=== PATIENT | female | born 1970 | race Hispanic/Latino ===

== ENCOUNTER 2017-05-22 16:34 | Emergency (ER) | payer SELFPAY ==
[~2017-05-22] VITALS: Ht 165.1 cm; Wt 65.8 kg
[2017-05-22] MEDS ORDERED: KETOROLAC TROMETHAMINE 60 MG/2 ML VIAL IM ONE (17:30)
[2017-05-22] MEDS ORDERED: KETOROLAC TROMETHAMINE 60 MG/2 ML VIAL ONE (20:47)
--- NOTE | 2017-05-22 21:10 | Diagnostic Imaging Report ---
KNEE LEFT THREE VIEWS HISTORY: Pain. Fall COMPARISON: None available. FINDINGS: Bones: Mildly comminuted nondisplaced fractures of the patella. Osseous alignment is within normal limits. Joints: The joint spaces are well-maintained. Soft tissues: Moderate suprapatellar joint effusion. IMPRESSION: Acute mildly comminuted nondisplaced fractures of the patella with moderate joint effusion. Signed by: DR. Gilbert Crespo MD on 05/22/2017 9:07 PM
== END 2017-05-22 21:03 | disposition home or self-care (01) ==
LOC: ER 16:34
DX: S82.045A Nondisplaced comminuted fracture of left patella, initial encounter for closed fracture (principal); W01.0XXA Fall on same level from slipping, tripping and stumbling without subsequent striking against object, initial encounter; Y93.01 Activity, walking, marching and hiking; Y92.410 Unspecified street and highway as the place of occurrence of the external cause; M25.462 Effusion, left knee
CPT/HCPCS: 73562; 99283; J1885

== ENCOUNTER 2020-02-12 14:33 | Observation (INO) | payer SELFPAY ==
[~2020-02-12] VITALS: Ht 165.1 cm; Wt 72.6 kg
[2020-02-12 15:05] LABS: BASOPHILS # (AUTO) 0.1 (0.0-0.1); BASOPHILS % 1.1 % (0.0-1.0); EOSINOPHILS % 0.2 % (0.0-6.0); HEMATOCRIT 38.4 % (34.2-44.1); HEMOGLOBIN 12.5 g/dL (12.0-16.0); LYMPHOCYTES # (AUTO) 1.5 (1.0-3.2); LYMPHOCYTES % 27.5 % (18.0-39.1); MEAN CORPUSCULAR HEMOGLOBIN 27.9 pg (28-32); MEAN CORPUSCULAR HGB CONC 32.6 g/dL (31-35); MEAN CORPUSCULAR VOLUME 85.7 fL (81-99); MONOCYTES # (AUTO) 0.4 (0.2-0.8); MONOCYTES % 7.7 % (4.4-11.3); NEUTROPHILS # (AUTO) 3.5 (2.1-6.9); NEUTROPHILS % 63.1 % (38.7-80.0); PLATELET COUNT 294 x10e3/uL (140-360); RED BLOOD COUNT 4.48 x10e6/uL (3.6-5.1); RED CELL DISTRIBUTION WIDTH 16.8 % (11.7-14.4)
[2020-02-12 15:08] LABS: CLARITY,URINE CLEAR (CLEAR); COLOR,URINE YELLOW (YELLOW); KETONES,URINE 1+ (NEGATIVE); LEUKOCYTE ESTERASE ,URINE NEGATIVE (NEGATIVE); NITRITE,URINE NEGATIVE (NEGATIVE); PROTEIN,URINE DIPSTICK 2+ (NEGATIVE)
[2020-02-12 15:09] LABS: BILIRUBIN,URINE MODERATE (NEGATIVE)
[2020-02-12 15:20] LABS: BACTERIA,URINE FEW /HPF; EPITHELIAL CELLS,URINE MODERATE /LPF; MUCUS,URINE FEW (RARE)
[2020-02-12 15:26] LABS: ALANINE AMINOTRANSFERASE 226 IU/L (0-55); ALBUMIN 4.5 g/dL (3.5-5.0); ALKALINE PHOSPHATASE 241 IU/L (40-150); ANION GAP 24.8 mmol/L (8-16); BLOOD UREA NITROGEN 5 mg/dL (7-26); BUN/CREATININE RATIO 6 (6-25); CALCIUM 9.6 mg/dL (8.4-10.2); CARBON DIOXIDE 23 mmol/L (22-29); CHLORIDE 96 mmol/L (98-107); CREATININE, SERUM 0.79 mg/dL (0.57-1.11); EST GLOMERULAR FILTRATION RATE > 60 ML/MIN (60-); GLUCOSE 101 mg/dL (74-118); LIPASE 28 U/L (8-78); SODIUM 141 mmol/L (136-145)
[2020-02-12 15:29] LABS: POTASSIUM 2.8 mmol/L (3.5-5.1)
[2020-02-12] MEDS ORDERED: LACTATED RINGER'S 1,000 ML INJ ONE (15:45)
[2020-02-12] MEDS ORDERED: POTASSIUM CHLORIDE 10MEQ/100ML 100 ML IV ONE (15:45)
[2020-02-12] MEDS: ONDANSETRON HCL INJ 2MG/ML 2ML 2 MG/ML VIAL IV PRN ×2 (15:55→22:36)
[2020-02-12] MEDS: D5NS/KCL 20MEQ 1,000 ML IV SCH (15:55)
[2020-02-12 16:13] LABS: MAGNESIUM 1.6 MG/DL (1.3-2.1); PHOSPHORUS 2.9 MG/DL (2.3-4.7)
[2020-02-12 16:24] LABS: ABG HCO3 27 mmol/L (22-26); ABG PCO2 33 mmHg (35-45); ABG PH 7.52 (7.35-7.45); ABG PO2 78 mmHg (80-105); ABG TCO2 28
[2020-02-12] MEDS ORDERED: PROMETHAZINE HCL (IM) 25 MG/ML VIAL IM ONE (16:26)
[2020-02-12] MEDS ORDERED: PROMETHAZINE 12.5MG/ NACL 0.9% 12.5 MG/50 ML BAG IV ONE (16:30)
[2020-02-12] MEDS ORDERED: CHLORDIAZEPOXIDE 100 MG AMP IV ONE (16:45)
[2020-02-12] MEDS ORDERED: ONDANSETRON HCL INJ 2MG/ML 2ML 2 MG/ML VIAL IV PRN (16:45)
[2020-02-12] MEDS ORDERED: CHLORDIAZEPOXIDE HCL 10 MG CAP PO ONE (17:00)
[2020-02-12 19:25] VITALS: BP 155/76
[2020-02-12 19:30] VITALS: BP 155/76
[2020-02-12 19:50] VITALS: BP 155/76
[2020-02-12] MEDS ORDERED: TRAZODONE HCL50 MG PO (23:23)
[2020-02-12] MEDS ORDERED: PROPRANOLOL HCL10 MG PO (23:23)
[2020-02-12] MEDS ORDERED: CYMBALTA30 MG (23:23)
[2020-02-12] MEDS ORDERED: RISPERIDONE2 MG (23:38)
[2020-02-12] MEDS ORDERED: CIPRO500 MG PO (23:38)
[2020-02-12] MEDS ORDERED: AMLODIPINE BESY10 MG PO (23:38)
[2020-02-12] MEDS ORDERED: DEXILANT30 MG (23:38)
[2020-02-12] MEDS ORDERED: LEVOTHYROXINE50 MCG PO (23:38)
[2020-02-12] MEDS ORDERED: DIPHENHYDRAMINE25 MG PO (23:38)
[2020-02-12] MEDS ORDERED: NAPROXEN250 MG PO (23:38)
[2020-02-12] MEDS ORDERED: ONDANSETRON HCL4 MG (23:38)
[2020-02-12] MEDS ORDERED: LIPITOR20 MG PO (23:38)
[2020-02-13] VITALS: BP 144/80
[2020-02-13] MEDS: D5NS/KCL 20MEQ 1,000 ML IV SCH ×2 (03:30→07:00)
[2020-02-13 04:00] VITALS: BP 144/75
[2020-02-13 06:00] LABS: BASOPHILS % 0.7 % (0.0-1.0); EOSINOPHILS % 0.7 % (0.0-6.0); HEMATOCRIT 34.4 % (34.2-44.1); LYMPHOCYTES # (AUTO) 1.5 (1.0-3.2); MEAN CORPUSCULAR HEMOGLOBIN 28.1 pg (28-32); MEAN CORPUSCULAR VOLUME 87.8 fL (81-99); MONOCYTES # (AUTO) 0.6 (0.2-0.8); MONOCYTES % 13.4 % (4.4-11.3); PLATELET COUNT 211 x10e3/uL (140-360); RED BLOOD COUNT 3.92 x10e6/uL (3.6-5.1); RED CELL DISTRIBUTION WIDTH 17.1 % (11.7-14.4)
[2020-02-13 06:23] LABS: BLOOD UREA NITROGEN 6 mg/dL (7-26); BUN/CREATININE RATIO 8 (6-25); CALCIUM 8.1 mg/dL (8.4-10.2); CARBON DIOXIDE 28 mmol/L (22-29); CHLORIDE 99 mmol/L (98-107); CREATININE, SERUM 0.71 mg/dL (0.57-1.11); EST GLOMERULAR FILTRATION RATE > 60 ML/MIN (60-); GLUCOSE 131 mg/dL (74-118); SODIUM 137 mmol/L (136-145)
[2020-02-13] MEDS ORDERED: MULTIVITAMINS- 12 INJECTION 10 ML, FOLIC ACID MDV 5 MG, THIAMINE HCL INJ 100 MG in SODI... IV ONE (06:45)
[2020-02-13] MEDS ORDERED: POTASSIUM CHLORIDE 20 MEQ TAB CR PO STA (07:45)
[2020-02-13] MEDS: ONDANSETRON HCL INJ 2MG/ML 2ML 2 MG/ML VIAL IV PRN (08:05)
[2020-02-13 08:24] VITALS: BP 151/88
[2020-02-13 08:37] VITALS: BP 151/88
[2020-02-13 12:08] VITALS: BP 148/78
[2020-02-13 15:47] VITALS: BP 150/89
[2020-02-13] MEDS ORDERED: ZOFRAN4 MG PO (17:12)
[2020-02-13] MEDS ORDERED: CHLORDIAZEPOXID25 MG PO (17:14)
== END 2020-02-13 17:33 | disposition home or self-care (01) ==
LOC: ER 14:50 → INTOOBSV 16:32 → ERHOLD 16:32 → MED/SURG2 19:31
PROVIDERS: ADMIT Family Medicine; ATTEND Family Medicine
DX: E87.6 Hypokalemia (principal); E86.0 Dehydration; F10.120 Alcohol abuse with intoxication, uncomplicated; I10 Essential (primary) hypertension; E03.9 Hypothyroidism, unspecified; E78.5 Hyperlipidemia, unspecified; F20.0 Paranoid schizophrenia; Z91.14 Patient's other noncompliance with medication regimen; Z87.440 Personal history of urinary (tract) infections; Z80.1 Family history of malignant neoplasm of trachea, bronchus and lung; Z83.3 Family history of diabetes mellitus; Z82.49 Family history of ischemic heart disease and other diseases of the circulatory system; Z20.828 Contact with and (suspected) exposure to other viral communicable diseases
CPT/HCPCS: 36415 ×2; 36600; 80048; 80053; 81001; 82805; 83690; 83735; 84100; 85025 ×2; 99285; G0378 ×2; J2405 ×2; J2550; J3411; J3480; J7030; J7121; U0002

== ENCOUNTER 2020-05-03 12:34 | Emergency (ER) | payer SELFPAY ==
[~2020-05-03] VITALS: Ht 165.1 cm; Wt 72.6 kg
[~2020-05-03 12:34] MED LIST: AMLODIPINE BESY10 MG PO; CHLORDIAZEPOXID25 MG PO; CIPRO500 MG PO; CYMBALTA30 MG; DEXILANT30 MG; DIPHENHYDRAMINE25 MG PO; LEVOTHYROXINE50 MCG PO; LIPITOR20 MG PO; NAPROXEN250 MG PO; ONDANSETRON HCL4 MG; PROPRANOLOL HCL10 MG PO; RISPERIDONE2 MG; TRAZODONE HCL50 MG PO; ZOFRAN4 MG PO
[2020-05-03] MEDS ORDERED: IBUPROFEN 600 MG TAB PO STA (13:11)
[2020-05-03] MEDS ORDERED: HYDROCODONE/APAP 10MG-325MG TAB PO ONE (13:15)
[2020-05-03] MEDS ORDERED: NAPROXEN250 MG PO (16:12)
[2020-05-03] MEDS ORDERED: HYDROCODON-ACE1 EA12 PO (16:12)
== END 2020-05-03 16:42 | disposition home or self-care (01) ==
LOC: ER 13:11
DX: S52.501A Unspecified fracture of the lower end of right radius, initial encounter for closed fracture (principal); X50.1XXA Overexertion from prolonged static or awkward postures, initial encounter; Y93.01 Activity, walking, marching and hiking
CPT/HCPCS: 99283

== ENCOUNTER 2021-03-29 22:35 | Emergency (ER) | payer MEDICARE ==
[~2021-03-29] VITALS: Ht 165.1 cm; Wt 81.6 kg
[~2021-03-29 22:35] MED LIST changes: +HYDROCODON-ACE1 EA12 PO
[2021-03-29 23:23] LABS: CLARITY,URINE CLOUDY (CLEAR); COLOR,URINE YELLOW (YELLOW); KETONES,URINE TRACE (NEGATIVE); LEUKOCYTE ESTERASE ,URINE LARGE (NEGATIVE); NITRITE,URINE NEGATIVE (NEGATIVE); PROTEIN,URINE DIPSTICK NEGATIVE (NEGATIVE); URINE UROBILINOGEN 0.2 mg/dL (0.2 - 1)
[2021-03-29 23:31] LABS: BACTERIA,URINE MODERATE /HPF; EPITHELIAL CELLS,URINE MANY /LPF; RBC,URINE 0-5 /HPF (0-5); WBC,URINE (MAN) >50 /HPF (0-5)
[2021-03-29 23:58] VITALS: BP 97/56
== END 2021-03-29 23:59 | disposition home or self-care (01) ==
LOC: ER 22:36
DX: R50.9 Fever, unspecified (principal); N39.0 Urinary tract infection, site not specified; R05.9 Cough, unspecified; M54.50 Low back pain, unspecified; I10 Essential (primary) hypertension; E78.5 Hyperlipidemia, unspecified; E03.9 Hypothyroidism, unspecified; F41.9 Anxiety disorder, unspecified; F20.0 Paranoid schizophrenia; Z20.822 Contact with and (suspected) exposure to COVID-19
CPT/HCPCS: 71045; 81001; 99283; U0002

== ENCOUNTER 2021-04-21 13:39 | Emergency (ER) | payer MEDICARE ==
[~2021-04-21] VITALS: Ht 165.1 cm; Wt 81.6 kg
[2021-04-21 14:39] LABS: BASOPHILS # (AUTO) 0.1 (0.0-0.1); BASOPHILS % 1.1 % (0.0-1.0); EOSINOPHILS # (AUTO) 0.1 (0.0-0.4); EOSINOPHILS % 1.4 % (0.0-6.0); HEMATOCRIT 36.3 % (34.2-44.1); HEMOGLOBIN 10.7 g/dL (12.0-16.0); LYMPHOCYTES # (AUTO) 3.2 (1.0-3.2); LYMPHOCYTES % 51.3 % (18.0-39.1); MEAN CORPUSCULAR HEMOGLOBIN 23.5 pg (28-32); MEAN CORPUSCULAR HGB CONC 29.5 g/dL (31-35); MEAN CORPUSCULAR VOLUME 79.8 fL (81-99); MONOCYTES # (AUTO) 0.7 (0.2-0.8); MONOCYTES % 10.6 % (4.4-11.3); NEUTROPHILS # (AUTO) 2.2 (2.1-6.9); NEUTROPHILS % 35.3 % (38.7-80.0); PLATELET COUNT 406 x10e3/uL (140-360); RED BLOOD COUNT 4.55 x10e6/uL (3.6-5.1); RED CELL DISTRIBUTION WIDTH 20.2 % (11.7-14.4)
[2021-04-21] MEDS ORDERED: LORAZEPAM INJ 2 MG/ML VIAL IV ONE (14:45)
[2021-04-21 14:54] LABS: ALBUMIN 4.5 g/dL (3.5-5.0); ANION GAP 18.7 mmol/L (8-16); CALCIUM 9.4 mg/dL (8.4-10.2); CREATININE, SERUM 1.14 mg/dL (0.57-1.11); POTASSIUM 3.7 mmol/L (3.5-5.1)
[2021-04-21 14:55] LABS: SALICYLATE < 5.0 mg/dL (0-30)
[2021-04-21 15:26] LABS: AMPHETAMINES SCREEN,URINE NEGATIVE (NEGATIVE); BENZODIAZEPINES SCREEN,URINE NEGATIVE (NEGATIVE); PHENCYCLIDINE SCREEN,URINE NEGATIVE (NEGATIVE)
[2021-04-21 15:27] LABS: CLARITY,URINE SL CLOUDY (CLEAR); COLOR,URINE YELLOW (YELLOW); KETONES,URINE TRACE (NEGATIVE); LEUKOCYTE ESTERASE ,URINE 1+ (NEGATIVE); NITRITE,URINE NEGATIVE (NEGATIVE); PROTEIN,URINE DIPSTICK TRACE (NEGATIVE); URINE UROBILINOGEN 0.2 mg/dL (0.2 - 1)
[2021-04-21 15:41] LABS: BACTERIA,URINE MANY /HPF; EPITHELIAL CELLS,URINE MANY /LPF; RENAL EPITHELIAL CELLS,URINE FEW
[2021-04-21 15:44] LABS: TRICHOMONAS,URINE MANY
[2021-04-21] MEDS ORDERED: SODIUM CHLORIDE 0.9% 1000ML 1,000 ML IV STA (16:04)
[2021-04-21] MEDS ORDERED: CEPHALEXIN 500 MG CAP PO SCH (16:15)
[2021-04-22 00:33] VITALS: BP 214/110
== END 2021-04-22 00:47 | disposition home or self-care (01) ==
LOC: ER 14:03
DX: R45.851 Suicidal ideations (principal); F10.129 Alcohol abuse with intoxication, unspecified; N39.0 Urinary tract infection, site not specified; I10 Essential (primary) hypertension; E03.9 Hypothyroidism, unspecified; E78.5 Hyperlipidemia, unspecified; F20.0 Paranoid schizophrenia; F41.9 Anxiety disorder, unspecified; R01.1 Cardiac murmur, unspecified; Z20.822 Contact with and (suspected) exposure to COVID-19
CPT/HCPCS: 36415; 80053; 80307; 80320; 80329 ×2; 81001; 84702; 85025; 99284; J2060; J7030; U0002

== ENCOUNTER 2021-11-02 13:45 | Observation (INO) | payer MEDICARE ==
[~2021-11-02] VITALS: Ht 165.1 cm; Wt 73.0 kg
[~2021-11-02 13:45] MED LIST changes: +SODIUM CHLORIDE FLUSH 10 ML SYR IV PRN
[2021-11-02] MEDS ORDERED: ONDANSETRON HCL INJ 2MG/ML 2ML 2 MG/ML VIAL IV STA (14:27)
[2021-11-02 14:35] LABS: BASOPHILS % 1.1 % (0.0-1.0); EOSINOPHILS % 1.1 % (0.0-6.0); HEMOGLOBIN 10.3 g/dL (12.0-16.0); LYMPHOCYTES % 54.9 % (18.0-39.1); MEAN CORPUSCULAR HEMOGLOBIN 32.1 pg (28-32); MEAN CORPUSCULAR HGB CONC 33.2 g/dL (31-35); MEAN CORPUSCULAR VOLUME 96.6 fL (81-99); MONOCYTES # (AUTO) 0.3 (0.2-0.8); MONOCYTES % 6.9 % (4.4-11.3); NEUTROPHILS # (AUTO) 1.3 (2.1-6.9); NEUTROPHILS % 35.7 % (38.7-80.0); PLATELET COUNT 275 x10e3/uL (140-360); RED BLOOD COUNT 3.21 x10e6/uL (3.6-5.1); RED CELL DISTRIBUTION WIDTH 12.2 % (11.7-14.4)
[2021-11-02 14:40] LABS: INR 0.94; PARTIAL THROMBOPLASTIN TIME 30.3 seconds (23.8-35.5); PROTHROMBIN TIME 13.4 seconds (11.9-14.5)
[2021-11-02 14:46] LABS: LIPASE 22 U/L (8-78)
[2021-11-02 14:48] LABS: ALBUMIN 3.5 g/dL (3.5-5.0); ALBUMIN/GLOBULIN RATIO 0.9 (0.8-2.0); ANION GAP 16.9 mmol/L (8-16); CREATININE, SERUM 1.05 mg/dL (0.57-1.11); POTASSIUM 3.9 mmol/L (3.5-5.1)
[2021-11-02 14:57] LABS: CLARITY,URINE CLEAR (CLEAR); COLOR,URINE YELLOW (YELLOW); KETONES,URINE NEGATIVE (NEGATIVE); LEUKOCYTE ESTERASE ,URINE NEGATIVE (NEGATIVE); NITRITE,URINE NEGATIVE (NEGATIVE); PROTEIN,URINE DIPSTICK NEGATIVE (NEGATIVE); URINE UROBILINOGEN 0.2 mg/dL (0.2 - 1)
[2021-11-02 15:06] LABS: BACTERIA,URINE MODERATE /HPF; EPITHELIAL CELLS,URINE FEW /LPF
[2021-11-02] MEDS: OCTREOTIDE ACETATE 0.05 MG/ML AMP IV SCH ×2 (15:30→20:48)
[2021-11-02] MEDS: SODIUM CHLORIDE 0.9% 1000ML 1,000 ML IV SCH ×2 (15:30→20:48)
[2021-11-02] MEDS: OCTREOTIDE ACETATE 500 MCG in SODIUM CHLORIDE 0.9% 250ML 250 ML IV SCH (16:00)
[2021-11-02] MEDS ORDERED: ONDANSETRON HCL INJ 2MG/ML 2ML 2 MG/ML VIAL IV PRN (17:45)
[2021-11-02 20:00] VITALS: BP 180/110
[2021-11-02 21:00] VITALS: BP_SYST 161; BP_SYST 180; BP_DIAS 110; BP_DIAS 90
[2021-11-03] VITALS (8 sets, daily range): BP systolic 131–200; BP diastolic 85–120
[2021-11-03 00:39] LABS: % IRON SATURATION 75 % (15-50); IRON 183 ug/dL (50-170); TOTAL IRON BINDING CAPACITY 245 ug/dL (261-478); TRANSFERRIN 175 mg/dL (180-382)
[2021-11-03] MEDS: OCTREOTIDE ACETATE 500 MCG in SODIUM CHLORIDE 0.9% 250ML 250 ML IV SCH ×3 (04:00→21:13)
[2021-11-03 05:23] LABS: EOSINOPHILS % 0.7 % (0.0-6.0); HEMATOCRIT 30.8 % (34.2-44.1); HEMOGLOBIN 10.4 g/dL (12.0-16.0); LYMPHOCYTES # (AUTO) 0.9 (1.0-3.2); LYMPHOCYTES % 21.4 % (18.0-39.1); MEAN CORPUSCULAR HGB CONC 33.8 g/dL (31-35); MEAN CORPUSCULAR VOLUME 94.8 fL (81-99); MONOCYTES # (AUTO) 0.3 (0.2-0.8); MONOCYTES % 8.4 % (4.4-11.3); NEUTROPHILS # (AUTO) 2.8 (2.1-6.9); NEUTROPHILS % 68.3 % (38.7-80.0); PLATELET COUNT 250 x10e3/uL (140-360); RED BLOOD COUNT 3.25 x10e6/uL (3.6-5.1)
[2021-11-03 05:52] LABS: ALBUMIN 3.5 g/dL (3.5-5.0); ANION GAP 22.5 mmol/L (8-16); CALCIUM 7.6 mg/dL (8.4-10.2); CREATININE, SERUM 0.98 mg/dL (0.57-1.11); POTASSIUM 3.5 mmol/L (3.5-5.1)
[2021-11-03] MEDS ORDERED: NAPROXEN 250 MG TAB PO PRN (06:00)
[2021-11-03] MEDS ORDERED: HYDROCODONE/APAP 7.5MG-325MG 1 EA TAB PO PRN (06:00)
[2021-11-03] MEDS: ONDANSETRON HCL 4 MG ORAL DISINTEGRATING TAB PO SCH ×3 (06:09→16:43)
[2021-11-03] MEDS: CHLORDIAZEPOXIDE HCL 25 MG CAP PO SCH ×3 (06:09→16:43)
[2021-11-03] MEDS: PROPRANOLOL HCL 10 MG TAB PO SCH ×2 (06:10→16:43)
[2021-11-03] MEDS ORDERED: AMLODIPINE BESYLATE 10 MG TAB PO SCH ×2 (07:00→09:00)
[2021-11-03] MEDS: DULOXETINE HCL 30 MG DELAYED RELEASE PO SCH (08:41)
[2021-11-03] MEDS: HYDRALAZINE HCL 20 MG/ML VIAL IV PRN ×2 (09:02→16:00)
[2021-11-03 11:56] LABS: WBC,FECAL (FECAL LACTOFERRIN) POSITIVE (NEGATIVE)
[2021-11-03] MEDS ORDERED: FENTANYL CITRATE/PF 100MCG/2 ML INJ ONE (13:44)
[2021-11-03] MEDS ORDERED: MIDAZOLAM HCL 2 MG/2 ML VIAL ONE (13:44)
[2021-11-03] MEDS: AMLODIPINE BESYLATE 10 MG TAB PO SCH (16:43)
[2021-11-03] MEDS ORDERED: METOCLOPRAMIDE HCL 10 MG/2ML VIAL ONE (19:40)
[2021-11-03] MEDS ORDERED: TRAZODONE HCL 50 MG TAB PO SCH (21:00)
[2021-11-03] MEDS ORDERED: ATORVASTATIN 40 MG TAB PO SCH (21:00)
[2021-11-03] MEDS ORDERED: SODIUM CHLORIDE 0.9% 250ML 500 ML ONE (21:01)
[2021-11-04] VITALS: BP 143/78
[2021-11-04] MEDS: ONDANSETRON HCL 4 MG ORAL DISINTEGRATING TAB PO SCH ×3 (01:19→11:16)
[2021-11-04] MEDS: CHLORDIAZEPOXIDE HCL 25 MG CAP PO SCH ×3 (01:19→11:16)
[2021-11-04 04:00] VITALS: BP 159/92
[2021-11-04] MEDS: OCTREOTIDE ACETATE 500 MCG in SODIUM CHLORIDE 0.9% 250ML 250 ML IV SCH (07:24)
[2021-11-04 08:10] VITALS: BP 138/88
[2021-11-04] MEDS: AMLODIPINE BESYLATE 10 MG TAB PO SCH (08:50)
[2021-11-04] MEDS: DULOXETINE HCL 30 MG DELAYED RELEASE PO SCH (08:50)
[2021-11-04] MEDS: PROPRANOLOL HCL 10 MG TAB PO SCH (08:51)
[2021-11-04 09:05] VITALS: BP 138/88
[2021-11-04] MEDS ORDERED: PROPOFOL IV EMULSION 10 MG/ML 20 ML VIAL IV ONE (11:59)
== END 2021-11-04 12:00 | disposition home or self-care (01) ==
LOC: ER 14:19 → ERHOLD 17:44 → MED/SURG 20:33 → MED/SURG2 11-04 05:29
PROVIDERS: ADMIT Internal Medicine; ATTEND Internal Medicine
DX: K29.21 Alcoholic gastritis with bleeding (principal); F10.220 Alcohol dependence with intoxication, uncomplicated; K70.30 Alcoholic cirrhosis of liver without ascites; Y90.8 Blood alcohol level of 240 mg/100 ml or more; F41.9 Anxiety disorder, unspecified; I10 Essential (primary) hypertension; K70.0 Alcoholic fatty liver; K21.9 Gastro-esophageal reflux disease without esophagitis; M19.90 Unspecified osteoarthritis, unspecified site; K44.9 Diaphragmatic hernia without obstruction or gangrene; K20.90 Esophagitis, unspecified without bleeding; Z87.11 Personal history of peptic ulcer disease; E03.9 Hypothyroidism, unspecified; E78.5 Hyperlipidemia, unspecified; K52.9 Noninfective gastroenteritis and colitis, unspecified; F20.0 Paranoid schizophrenia; Z90.710 Acquired absence of both cervix and uterus; Z20.822 Contact with and (suspected) exposure to COVID-19
CPT/HCPCS: 36415 ×2; 43239; 71045; 74176; 80053 ×2; 80320; 81001; 82607; 82746; 82948; 83540; 83630; 83690; 84466; 84484; 85025 ×2; 85045; 85610; 85730; 86850; 86900; 87045; 87086; 87177; 87324; 87449; 88305; 88342; 93005; 96360; 96361 ×2; 99284; C9113 ×3; G0378 ×3; J0360; J2250; J2353 ×3; J2354; J2405; J2704; J2765; J3010; J7030; J7050 ×3; Q0162 ×2; U0002; 88304; 88312

== ENCOUNTER 2022-01-14 21:05 | Emergency (ER) | payer MEDICARE ==
[~2022-01-14] VITALS: Ht 165.1 cm; Wt 73.0 kg
[~2022-01-14 21:05] MED LIST changes: -SODIUM CHLORIDE FLUSH 10 ML SYR IV PRN
[2022-01-14] MEDS ORDERED: ONDANSETRON HCL INJ 2MG/ML 2ML 2 MG/ML VIAL IV STA (21:26)
[2022-01-14] MEDS ORDERED: Morphine 4mg INJECTION 4 MG/ML INJ IV ONE ×2 (21:30→23:45)
[2022-01-14] MEDS ORDERED: SODIUM CHLORIDE 0.9% 1000ML 1,000 ML IV ONE (21:30)
[2022-01-14 21:49] LABS: BASOPHILS % 0.4 % (0.0-1.0); HEMATOCRIT 32.4 % (34.2-44.1); HEMOGLOBIN 11.1 g/dL (12.0-16.0); LYMPHOCYTES # (AUTO) 0.4 (1.0-3.2); LYMPHOCYTES % 4.8 % (18.0-39.1); MEAN CORPUSCULAR HGB CONC 34.3 g/dL (31-35); MEAN CORPUSCULAR VOLUME 90.5 fL (81-99); MONOCYTES # (AUTO) 0.5 (0.2-0.8); NEUTROPHILS # (AUTO) 6.6 (2.1-6.9); NEUTROPHILS % 87.5 % (38.7-80.0); PLATELET COUNT 248 x10e3/uL (140-360); RED BLOOD COUNT 3.58 x10e6/uL (3.6-5.1); RED CELL DISTRIBUTION WIDTH 13.2 % (11.7-14.4)
[2022-01-14 22:13] LABS: ALBUMIN 3.8 g/dL (3.5-5.0); ALBUMIN/GLOBULIN RATIO 1.2 (0.8-2.0); ANION GAP 22.7 mmol/L (8-16); CREATININE, SERUM 0.79 mg/dL (0.57-1.11)
[2022-01-14 22:14] LABS: POTASSIUM 2.7 mmol/L (3.5-5.1)
[2022-01-14 22:22] LABS: CREATINE KINASE MB 0.6 ng/mL (0-5.0)
[2022-01-14 22:27] LABS: ABG HCO3 27 mmol/L (22-26); ABG PCO2 38 mmHg (35-45); ABG PH 7.45 (7.35-7.45); ABG PO2 79 mmHg (80-105); ABG TCO2 28
[2022-01-14] MEDS ORDERED: PROMETHAZINE 25MG/ NS 50ML (IV) IV ONE (23:00)
[2022-01-14] MEDS: POTASSIUM CHLORIDE 20MEQ/100ML 100 ML IV SCH (23:01)
[2022-01-14] MEDS ORDERED: PROMETHAZINE 25MG/SOD CHL 0.9% 50 ML IV ONE (23:07)
[2022-01-14] MEDS ORDERED: Morphine 4mg INJECTION 4 MG/ML INJ ONE (23:07)
[2022-01-14] MEDS ORDERED: SODIUM CHLORIDE 0.9% 1000ML 1,000 ML ONE (23:07)
[2022-01-14] MEDS ORDERED: SODIUM CHLORIDE 0.9% 500ML 500 ML ONE (23:16)
[2022-01-14] MEDS ORDERED: ACETAMINOPHEN 325 MG TAB PO STA (23:36)
[2022-01-14] MEDS ORDERED: ACETAMINOPHEN 325 MG TAB ONE (23:52)
[2022-01-15] MEDS: POTASSIUM CHLORIDE 20MEQ/100ML 100 ML IV SCH (01:00)
[2022-01-15 02:01] LABS: AMPHETAMINES SCREEN,URINE NEGATIVE (NEGATIVE); BENZODIAZEPINES SCREEN,URINE NEGATIVE (NEGATIVE); PHENCYCLIDINE SCREEN,URINE NEGATIVE (NEGATIVE)
[2022-01-15 02:02] LABS: CLARITY,URINE CLEAR (CLEAR); COLOR,URINE YELLOW (YELLOW); KETONES,URINE 2+ (NEGATIVE); LEUKOCYTE ESTERASE ,URINE NEGATIVE (NEGATIVE); NITRITE,URINE NEGATIVE (NEGATIVE); PROTEIN,URINE DIPSTICK 1+ (NEGATIVE); URINE UROBILINOGEN 0.2 mg/dL (0.2 - 1)
[2022-01-15 02:16] LABS: BACTERIA,URINE MANY /HPF; EPITHELIAL CELLS,URINE FEW /LPF
[2022-01-15 02:17] LABS: MUCUS,URINE MODERATE (RARE); TRANSITIONAL EPI CELLS,URINE FEW
[2022-01-15 02:24] VITALS: BP 159/106
[2022-01-15] MEDS ORDERED: ONDANSETRON HCL INJ 2MG/ML 2ML 2 MG/ML VIAL ONE ×2 (02:32→03:08)
[2022-01-15] MEDS ORDERED: ONDANSETRON ODT4 MG PO (02:55)
[2022-01-15] MEDS ORDERED: CIPRO500 MG PO (02:55)
[2022-01-15] MEDS ORDERED: ONDANSETRON HCL INJ 2MG/ML 2ML 2 MG/ML VIAL IV STA (03:04)
== END 2022-01-15 03:18 | disposition home or self-care (01) ==
LOC: ER 21:14
DX: R10.13 Epigastric pain (principal); N39.0 Urinary tract infection, site not specified; R11.2 Nausea with vomiting, unspecified; E11.65 Type 2 diabetes mellitus with hyperglycemia; E87.6 Hypokalemia; I10 Essential (primary) hypertension; R00.0 Tachycardia, unspecified; E78.5 Hyperlipidemia, unspecified; E03.9 Hypothyroidism, unspecified; F41.9 Anxiety disorder, unspecified; F32.A Depression, unspecified; F20.0 Paranoid schizophrenia; R94.31 Abnormal electrocardiogram [ECG] [EKG]
CPT/HCPCS: 36415; 36600; 76705; 80053; 80307; 81001; 82550; 82553; 82805; 83690; 84484; 85025; 93005; 99284; J2270; J2405 ×2; J2550; J3480; J7030; J7040

== ENCOUNTER 2022-07-04 12:04 | Emergency (ER) | payer MEDICARE ==
[~2022-07-04] VITALS: Ht 165.1 cm; Wt 73.0 kg
[~2022-07-04 12:04] MED LIST changes: +ONDANSETRON ODT4 MG PO
[2022-07-04] MEDS ORDERED: HYDROCODONE/APAP 7.5MG-325MG 1 EA TAB PO STA (12:30)
[2022-07-04] MEDS ORDERED: KETOROLAC TROMETHAMINE 30 MG/ML VIAL IM STA (12:30)
[2022-07-04] MEDS ORDERED: LIDOCAINE1 EACH EXT (13:48)
[2022-07-04] MEDS ORDERED: NAPROXEN250 MG PO (13:48)
[2022-07-04 14:36] VITALS: BP 135/78
== END 2022-07-04 14:35 | disposition home or self-care (01) ==
LOC: ER 12:11
DX: R07.81 Pleurodynia (principal); Y04.0XXA Assault by unarmed brawl or fight, initial encounter; Y92.89 Other specified places as the place of occurrence of the external cause; I10 Essential (primary) hypertension; E11.9 Type 2 diabetes mellitus without complications; E78.5 Hyperlipidemia, unspecified; F20.0 Paranoid schizophrenia; F32.A Depression, unspecified; F41.9 Anxiety disorder, unspecified
CPT/HCPCS: 71101; 73562; 99283; J1885

== ENCOUNTER 2022-08-02 15:58 | Observation (INO) | payer MEDICARE ==
[~2022-08-02] VITALS: Ht 165.1 cm; Wt 63.5 kg
[~2022-08-02 15:58] MED LIST changes: -CYMBALTA30 MG; +CYMBALTA30 MG PO; -DEXILANT30 MG; +DEXILANT30 MG PO; +LIDOCAINE1 EACH EXT
[2022-08-02] MEDS ORDERED: OCTREOTIDE ACETATE 0.05 MG/ML AMP IV STA (16:23)
[2022-08-02] MEDS ORDERED: GABAPENTIN600 MG PO (16:27)
[2022-08-02] MEDS ORDERED: ATORVASTATIN CA40 MG PO (16:27)
[2022-08-02] MEDS ORDERED: BUSPIRONE HCL15 MG PO (16:27)
[2022-08-02 16:28] LABS: EOSINOPHILS # (AUTO) 0.1 (0.0-0.4); HEMATOCRIT 33.9 % (34.2-44.1); HEMOGLOBIN 10.8 g/dL (12.0-16.0); LYMPHOCYTES # (AUTO) 1.7 (1.0-3.2); LYMPHOCYTES % 42.6 % (18.0-39.1); MEAN CORPUSCULAR HEMOGLOBIN 28.8 pg (28-32); MEAN CORPUSCULAR HGB CONC 31.9 g/dL (31-35); MEAN CORPUSCULAR VOLUME 90.4 fL (81-99); MONOCYTES # (AUTO) 0.2 (0.2-0.8); MONOCYTES % 5.5 % (4.4-11.3); NEUTROPHILS % 48.9 % (38.7-80.0); PLATELET COUNT 332 x10e3/uL (140-360); RED BLOOD COUNT 3.75 x10e6/uL (3.6-5.1); RED CELL DISTRIBUTION WIDTH 12.5 % (11.7-14.4)
[2022-08-02] MEDS ORDERED: MULTIVITAMINS- 12 INJECTION 10 ML, FOLIC ACID MDV 1 MG, THIAMINE HCL INJ 100 MG in SODI... IV ONE (16:30)
[2022-08-02 16:47] LABS: INR 0.9; PROTHROMBIN TIME 12.6 seconds (11.9-14.5)
[2022-08-02] MEDS: OCTREOTIDE ACETATE 500 MCG in SODIUM CHLORIDE 0.9% 250ML 249 ML IV SCH (16:50)
[2022-08-02 16:56] LABS: ALBUMIN 4.3 g/dL (3.5-5.0); ALBUMIN/GLOBULIN RATIO 1.1 (0.8-2.0); ANION GAP 14.4 mmol/L (8-16); CALCIUM 9.3 mg/dL (8.4-10.2); CREATININE, SERUM 0.84 mg/dL (0.57-1.11); POTASSIUM 3.4 mmol/L (3.5-5.1)
[2022-08-02] MEDS ORDERED: SODIUM CHLORIDE 0.9% 100 ML ONE (17:02)
[2022-08-02] MEDS ORDERED: IOPAMIDOL 370 MG/ML 100 ML INFUS..BTL INJ ONE (17:02)
[2022-08-02] MEDS ORDERED: SODIUM CHLORIDE FLUSH 10 ML SYR INJ PRN (17:30)
[2022-08-02] MEDS ORDERED: CHLORDIAZEPOXIDE HCL 25 MG CAP PO PRN (17:30)
[2022-08-02] MEDS ORDERED: ONDANSETRON HCL INJ 2MG/ML 2ML 2 MG/ML VIAL IV PRN (17:30)
[2022-08-02] MEDS ORDERED: ACETAMINOPHEN 325 MG TAB PO PRN (20:15)
[2022-08-02] MEDS ORDERED: MELOXICAM7.5 MG PO (22:49)
[2022-08-02] MEDS ORDERED: MELOXICAM 7.5 MG TAB PO PRN (23:00)
[2022-08-02] MEDS ORDERED: AMLODIPINE BESYLATE 5 MG TAB PO ONE (23:15)
[2022-08-02] MEDS ORDERED: POTASSIUM CHLORIDE 20 MEQ TAB CR PO PRN (23:45)
[2022-08-03] MEDS: OCTREOTIDE ACETATE 500 MCG in SODIUM CHLORIDE 0.9% 250ML 249 ML IV SCH (04:17)
[2022-08-03 05:50] LABS: BASOPHILS # (AUTO) 0.1 (0.0-0.1); BASOPHILS % 1.4 % (0.0-1.0); EOSINOPHILS # (AUTO) 0.1 (0.0-0.4); EOSINOPHILS % 2.2 % (0.0-6.0); HEMATOCRIT 33.6 % (34.2-44.1); HEMOGLOBIN 10.7 g/dL (12.0-16.0); LYMPHOCYTES # (AUTO) 1.4 (1.0-3.2); LYMPHOCYTES % 28.7 % (18.0-39.1); MEAN CORPUSCULAR HEMOGLOBIN 28.8 pg (28-32); MEAN CORPUSCULAR HGB CONC 31.8 g/dL (31-35); MEAN CORPUSCULAR VOLUME 90.3 fL (81-99); MONOCYTES # (AUTO) 0.5 (0.2-0.8); MONOCYTES % 10.8 % (4.4-11.3); NEUTROPHILS # (AUTO) 2.8 (2.1-6.9); NEUTROPHILS % 56.9 % (38.7-80.0); PLATELET COUNT 311 x10e3/uL (140-360); RED BLOOD COUNT 3.72 x10e6/uL (3.6-5.1); RED CELL DISTRIBUTION WIDTH 11.9 % (11.7-14.4)
[2022-08-03 06:07] LABS: ANION GAP 14.1 mmol/L (8-16); CREATININE, SERUM 0.99 mg/dL (0.57-1.11); POTASSIUM 4.1 mmol/L (3.5-5.1)
[2022-08-03 06:17] LABS: MAGNESIUM 1.6 MG/DL (1.3-2.1)
[2022-08-03 06:25] LABS: THYROID STIMULATING HORMONE 0.702 uIU/mL (0.350-4.940)
[2022-08-03] MEDS ORDERED: PANTOPRAZOLE SOD 40 MG TABEC PO SCH (07:30)
[2022-08-03] MEDS ORDERED: DULOXETINE HCL 30 MG DELAYED RELEASE PO SCH (09:00)
[2022-08-03] MEDS ORDERED: BUSPIRONE HCL 10 MG TABLET PO SCH (09:00)
[2022-08-03] MEDS ORDERED: PROPRANOLOL HCL 10 MG TAB PO SCH (09:00)
[2022-08-03] MEDS ORDERED: GABAPENTIN 300 MG CAP PO SCH (09:00)
[2022-08-03] MEDS ORDERED: AMLODIPINE BESYLATE 10 MG TAB PO SCH (09:00)
[2022-08-03] MEDS ORDERED: ATORVASTATIN 40 MG TAB PO SCH (21:00)
[2022-08-03] MEDS ORDERED: TRAZODONE HCL 50 MG TAB PO SCH (21:00)
== END 2022-08-03 11:00 | disposition home or self-care (01) ==
LOC: ER 16:03 → ERHOLD 17:26
PROVIDERS: ADMIT Internal Medicine; ATTEND Internal Medicine
DX: K29.21 Alcoholic gastritis with bleeding (principal); K44.9 Diaphragmatic hernia without obstruction or gangrene; F10.20 Alcohol dependence, uncomplicated; K70.30 Alcoholic cirrhosis of liver without ascites; D62 Acute posthemorrhagic anemia; Z20.822 Contact with and (suspected) exposure to COVID-19
CPT/HCPCS: 0223U; 36415 ×2; 74174; 80048; 80053; 80320; 82607; 83540; 83735; 84100; 84443; 84466; 85025 ×2; 85610; 99285; C9113; G0378 ×2; J2353 ×2; J2354; J3411; J7030; J7050 ×3; Q9967; 99284

== ENCOUNTER → 2024-04-10 | Day surgery (SDC) | payer MEDICARE ==
[2024-03-30 11:32] LABS: BASOPHILS % 0.3 % (0.0-1.0); EOSINOPHILS % 0.3 % (0.0-6.0); HEMATOCRIT 28.9 % (34.2-44.1); HEMOGLOBIN 7.8 g/dL (12.0-16.0); LYMPHOCYTES # (AUTO) 1.1 (1.0-3.2); MEAN CORPUSCULAR VOLUME 81.6 fL (81-99); MONOCYTES # (AUTO) 0.9 (0.2-0.8); MONOCYTES % 7.4 % (4.4-11.3); NEUTROPHILS # (AUTO) 10.2 (2.1-6.9); NEUTROPHILS % 82.8 % (38.7-80.0); PLATELET COUNT 357 x10e3/uL (140-360); RED BLOOD COUNT 3.54 x10e6/uL (3.6-5.1); RED CELL DISTRIBUTION WIDTH 18.3 % (11.7-14.4); WHITE BLOOD COUNT 12.28 x10e3/uL (4.8-10.8)
[2024-03-30 11:56] LABS: INR 0.9; PROTHROMBIN TIME 12.7 seconds (11.9-14.5)
[2024-03-30 11:57] LABS: PARTIAL THROMBOPLASTIN TIME 28.4 seconds (23.8-35.5)
[2024-03-30 12:01] LABS: ANION GAP 16.4 mmol/L (8-16); CALCIUM 9.6 mg/dL (8.4-10.2); CREATININE, SERUM 1.02 mg/dL (0.57-1.11); POTASSIUM 3.4 mmol/L (3.5-5.1)
[~2024-04-10] MED LIST changes: +ATORVASTATIN CA40 MG PO; +BUSPIRONE HCL15 MG PO; +GABAPENTIN600 MG PO; +HYDROCODON-ACE1 EAC9 PO; +KETOROLAC TROME10 MG PO; +LIDOCAINE HCL 2% LOCAL INJ 5 ML SDV VIAL INJ ONE; +MELOXICAM7.5 MG PO; +MIDAZOLAM HCL 2 MG/2 ML VIAL ONE; +PROPOFOL IV EMULSION 50 ML IV ONE; +ROSUVASTATIN CA40 MG PO; +SUCRALFATE1 GM PO; +VENTOLIN HFA18 GM INH; +VITAMIN D250 MC1 PO
[2024-04-10] MEDS: LACTATED RINGER'S 1,000 ML ONE (09:06)
[2024-04-10 10:06] LABS: BASOPHILS # (AUTO) 0.1 (0.0-0.1); BASOPHILS % 1.8 % (0.0-1.0); EOSINOPHILS % 0.7 % (0.0-6.0); HEMATOCRIT 30.2 % (34.2-44.1); HEMOGLOBIN 8.2 g/dL (12.0-16.0); LYMPHOCYTES # (AUTO) 1.1 (1.0-3.2); LYMPHOCYTES % 25.1 % (18.0-39.1); MEAN CORPUSCULAR HEMOGLOBIN 21.4 pg (28-32); MEAN CORPUSCULAR HGB CONC 27.2 g/dL (31-35); MEAN CORPUSCULAR VOLUME 78.9 fL (81-99); MONOCYTES # (AUTO) 0.6 (0.2-0.8); MONOCYTES % 13.1 % (4.4-11.3); NEUTROPHILS # (AUTO) 2.7 (2.1-6.9); NEUTROPHILS % 59.1 % (38.7-80.0); PLATELET COUNT 399 x10e3/uL (140-360); RED BLOOD COUNT 3.83 x10e6/uL (3.6-5.1); RED CELL DISTRIBUTION WIDTH 18.4 % (11.7-14.4)
[2024-04-10 12:32] VITALS: TEMP 97.6
[2024-04-10 12:45] VITALS: BP 118/66; PULSE 77; RESP 16; O2SAT 95
[2024-04-10 13:44] LABS: % IRON SATURATION 4 % (15-50); IRON 20 ug/dL (50-170); TOTAL IRON BINDING CAPACITY 556 ug/dL (261-478); TRANSFERRIN 397 mg/dL (180-382)
[2024-04-14 07:13] LABS: ENDOMYSIAL ANTIBODIES, IGA Negative (Negative)
[2024-04-14 08:18] LABS: IMMUNOGLOBULIN A 331 mg/dL (87-352); TISSUE TRANSGLUTAMINASE IGA AB <2 U/mL (0-3)
== END | disposition home or self-care (01) ==
LOC: OR 08:38
PROVIDERS: ATTEND Internal Medicine Gastroenterology
DX: D64.89 Other specified anemias (principal); Z86.0100 Personal history of colon polyps, unspecified; K29.70 Gastritis, unspecified, without bleeding; K21.9 Gastro-esophageal reflux disease without esophagitis; K28.9 Gastrojejunal ulcer, unspecified as acute or chronic, without hemorrhage or perforation; K20.90 Esophagitis, unspecified without bleeding; K44.9 Diaphragmatic hernia without obstruction or gangrene; K57.30 Diverticulosis of large intestine without perforation or abscess without bleeding; K59.04 Chronic idiopathic constipation; K64.8 Other hemorrhoids; Z71.3 Dietary counseling and surveillance; K70.30 Alcoholic cirrhosis of liver without ascites; R53.83 Other fatigue; I10 Essential (primary) hypertension; E78.5 Hyperlipidemia, unspecified; M81.0 Age-related osteoporosis without current pathological fracture; F41.9 Anxiety disorder, unspecified; F31.9 Bipolar disorder, unspecified; Z72.0 Tobacco use; Z01.810 Encounter for preprocedural cardiovascular examination; Z01.812 Encounter for preprocedural laboratory examination; Z79.899 Other long term (current) drug therapy; Z68.28 Body mass index [BMI] 28.0-28.9, adult; Z86.16 Personal history of COVID-19
CPT/HCPCS: 36415 ×2; 43239; 45378; 71045; 80048; 82607; 82746; 82784; 83516; 83540; 84466; 85025 ×2; 85045; 85610; 85730; 86256; 93005; J2003; J2250; J2470; J2704; J7121

== ENCOUNTER 2024-04-20 14:45 | Emergency (ER) | payer MEDICARE ==
[~2024-04-20] VITALS: Ht 165.1 cm; Wt 67.1 kg
[~2024-04-20 14:45] MED LIST changes: -LIDOCAINE HCL 2% LOCAL INJ 5 ML SDV VIAL INJ ONE; -MIDAZOLAM HCL 2 MG/2 ML VIAL ONE; -PROPOFOL IV EMULSION 50 ML IV ONE
[2024-04-20 14:50] VITALS: TEMP 98.4
[2024-04-20 15:38] LABS: BASOPHILS % 0.4 % (0.0-1.0); EOSINOPHILS % 0.4 % (0.0-6.0); HEMATOCRIT 30.1 % (34.2-44.1); HEMOGLOBIN 8.3 g/dL (12.0-16.0); LYMPHOCYTES # (AUTO) 0.7 (1.0-3.2); LYMPHOCYTES % 9.1 % (18.0-39.1); MEAN CORPUSCULAR HEMOGLOBIN 21.1 pg (28-32); MEAN CORPUSCULAR HGB CONC 27.6 g/dL (31-35); MEAN CORPUSCULAR VOLUME 76.6 fL (81-99); MONOCYTES % 0.6 % (4.4-11.3); NEUTROPHILS # (AUTO) 6.3 (2.1-6.9); NEUTROPHILS % 89.1 % (38.7-80.0); PLATELET COUNT 460 x10e3/uL (140-360); RED BLOOD COUNT 3.93 x10e6/uL (3.6-5.1); RED CELL DISTRIBUTION WIDTH 17.4 % (11.7-14.4); WHITE BLOOD COUNT 7.12 x10e3/uL (4.8-10.8)
[2024-04-20] MEDS: SODIUM CHLORIDE 0.9% 500ML 500 ML IV ONE (15:38)
[2024-04-20] MEDS: ONDANSETRON HCL INJ 2MG/ML 2ML 2 MG/ML VIAL IV STA (15:40)
[2024-04-20 15:41] VITALS: PULSE 85; RESP 16; O2SAT 98
[2024-04-20 15:50] LABS: INR 0.87; PROTHROMBIN TIME 12.4 seconds (11.9-14.5)
[2024-04-20 15:51] LABS: PARTIAL THROMBOPLASTIN TIME 26.9 seconds (23.8-35.5)
[2024-04-20 15:58] LABS: ALANINE AMINOTRANSFERASE 50 IU/L (0-55); ALBUMIN 4.4 g/dL (3.5-5.0); ALKALINE PHOSPHATASE 85 IU/L (40-150); ANION GAP 16.5 mmol/L (8-16); BILIRUBIN,TOTAL 0.7 mg/dL (0.2-1.2); BLOOD UREA NITROGEN 17 mg/dL (7-26); BUN/CREATININE RATIO 17 (6-25); CALCIUM 10.1 mg/dL (8.4-10.2); CARBON DIOXIDE 22 mmol/L (22-29); CHLORIDE 98 mmol/L (98-107); CREATINE KINASE 72 IU/L (29-168); CREATININE, SERUM 0.98 mg/dL (0.57-1.11); EST GLOMERULAR FILTRATION RATE 68 ML/MIN (>=60); GLUCOSE 192 mg/dL (74-118); LIPASE 54 U/L (8-78); POTASSIUM 4.5 mmol/L (3.5-5.1); SODIUM 132 mmol/L (136-145); TOTAL PROTEIN 8.8 g/dL (6.5-8.1)
[2024-04-20 16:21] LABS: TROPONIN I < 0.05 ng/mL (0.0-0.40)
[2024-04-20 16:58] LABS: ANISOCYTOSIS SLIGHT; HYPOCHROMASIA MODERATE; MICROCYTOSIS MODERATE; POIKILOCYTOSIS SLIGHT; POLYCHROMASIA FEW
[2024-04-20 17:03] LABS: PLATELET ESTIMATE ADEQUATE; PLATELET MORPHOLOGY COMMENT NORMAL; RBC MORPHOLOGY COMMENT ABNORMAL; STOMATOCYTES MODERATE
== END 2024-04-20 17:58 | disposition home or self-care (01) ==
LOC: ER 15:00
DX: D64.9 Anemia, unspecified (principal); R11.2 Nausea with vomiting, unspecified; I10 Essential (primary) hypertension; E78.5 Hyperlipidemia, unspecified; B19.20 Unspecified viral hepatitis C without hepatic coma; F41.9 Anxiety disorder, unspecified; F20.0 Paranoid schizophrenia; M81.0 Age-related osteoporosis without current pathological fracture
CPT/HCPCS: 36415; 71045; 80053; 82550; 83690; 83735; 84484; 85025; 85610; 85730; 86850; 86900; 99001; 99284; J2405; J2470; J7040

== ENCOUNTER → 2024-08-04 | Outpatient (REF) | payer MEDICARE | LOC: DX 09:04 | PROVIDERS: ATTEND Surgery | DX: K21.9 Gastro-esophageal reflux disease without esophagitis (principal); K44.9 Diaphragmatic hernia without obstruction or gangrene | CPT/HCPCS: 74246 ==

== ENCOUNTER 2024-11-16 09:36 | Emergency (ER) | payer MEDICARE ==
[~2024-11-16] VITALS: Ht 165.1 cm; Wt 67.1 kg
[2024-11-16 09:41] VITALS: TEMP 98.4
[2024-11-16 10:44] LABS: BASOPHILS % 0.4 % (0.0-1.0); EOSINOPHILS % 0.9 % (0.0-6.0); LYMPHOCYTES % 20.9 % (18.0-39.1); MONOCYTES % 5.9 % (4.4-11.3); NEUTROPHILS % 71.5 % (38.7-80.0); RED CELL DISTRIBUTION WIDTH 12.7 % (11.7-14.4)
[2024-11-16 11:19] LABS: EST GLOMERULAR FILTRATION RATE 59 ML/MIN (>=60)
[2024-11-16] MEDS: LABETALOL HCL 5 MG/ML 20ML VIAL IV STA ×2 (11:21→11:28)
[2024-11-16] MEDS: LORAZEPAM INJ 2 MG/ML VIAL IV ONE (11:21)
[2024-11-16] MEDS: SODIUM CHLORIDE 0.9% 1000ML 1,000 ML IV STA (11:21)
[2024-11-16 11:23] LABS: INR 0.79
[2024-11-16 11:32] VITALS: O2SAT 99
[2024-11-16 11:35] LABS: ETHANOL < 10.0 mg/dL (0.0-10.0)
[2024-11-16 12:07] VITALS: PULSE 81; RESP 18
[2024-11-16 12:11] LABS: AMPHETAMINES SCREEN,URINE NEGATIVE (NEGATIVE); CANNABINOIDS SCREEN,URINE NEGATIVE (NEGATIVE); COCAINE SCREEN,URINE NEGATIVE (NEGATIVE); METHADONE SCREEN, URINE NEGATIVE (NEGATIVE); OPIATES SCREEN,URINE NEGATIVE (NEGATIVE)
[2024-11-16 13:34] VITALS: BP 168/97; PULSE 85; RESP 20
== END 2024-11-16 13:27 | disposition home or self-care (01) ==
LOC: ER 09:41
DX: R51.9 Headache, unspecified (principal); F41.9 Anxiety disorder, unspecified; F20.9 Schizophrenia, unspecified; Z81.1 Family history of alcohol abuse and dependence; R94.31 Abnormal electrocardiogram [ECG] [EKG]
CPT/HCPCS: 36415; 80053; 80307; 80320; 80329 ×2; 83690; 83880; 84484; 85025; 85379; 85610; 85730; 93005; 99283; J2060; J2470; J3490; J7030

== ENCOUNTER → 2025-01-25 | Outpatient (REF) | payer MEDICARE ==
[~2025-01-25] MED LIST changes: +DIATRIZOATE MEGL/DIATRIZOA SOD 30 ML BTL PO ONE; +IOPAMIDOL 370 MG/ML 100 ML INFUS..BTL INJ ONE
[2025-01-25 14:27] LABS: EST GLOMERULAR FILTRATION RATE 61.0 ML/MIN (>=60)
== END ==
LOC: CT 13:08
PROVIDERS: ATTEND Nurse Practitioner
DX: R10.84 Generalized abdominal pain (principal); R14.0 Abdominal distension (gaseous)
CPT/HCPCS: 36415; 74177; 82565; 84520; Q9963; Q9967